=== PATIENT | male | born 1935 | race Caucasian/White ===

== ENCOUNTER 2018-12-11 11:28 | Inpatient (IN) ==
--- NOTE | 2018-12-11 11:35 | Emergency Department Note ---
Disposition Clinical Impression: Contrast dye induced nephropathy, CHF exacerbation, Pneumonia Acute kidney failure Qualifiers: Acute renal failure type: unspecified Qualified Code(s): N17.9 - Acute kidney failure, unspecified Disposition: Still a Patient Condition: Fair Time of Disposition: 19:57 General Adult HPI - General Stated complaint: Abnormal Labs (Kidney Failure) Time Seen by Provider: 12/11/18 11:33 Source: patient, family Mode of arrival: ambulatory Limitations: no limitations Nursing Notes Reviewed: Yes Vital Signs Reviewed: Yes - History of Present Illness HPI Narrative: I have re-performed and reviewed the history documented by the medical student, and I confirm its accuracy except as noted below 83-year-old male past medical history significant for stage III chronic kidney disease, CHF, significant greater than 50 year smoking history, tracheostomy is placed, has been experiencing one year of gradually progressive and worsening weakness. Recently underwent a CT scan at [facility] with IV contrast. Patient states that he was called by his family physician for "abnormal labs" told to come to the ER. Patient states he has no surgical complaints at this time other than generalized weakness which he has noticed has become worse in the past week since his visit to [facility]. Patient and his family bedside also note that he has had worsening lower extremity edema bilaterally however most emphasized on the left side due to surgery were muscle was removed from his leg in order to recons truct his pharynx after tracheostomy placement. Patient states he has no other concerns or complaints at this time and "just wants to go home." Onset (ago): year(s) Consistency: Worsening Associated symptoms: Reports: weakness - Related Data Home Medications Medication Instructions Recorded Confirmed Famotidine [Pepcid] 40 mg PO BID 06/26/15 12/11/18 Levothyroxine [Synthroid] 88 mcg PO 0606/26/15 12/11/18 glipiZIDE [Glucotrol] 5 mg PO BIDWM 06/26/15 12/11/18 Aspirin [Lo-Dose Aspirin EC] 81 mg PO DAILY 12/11/18 12/11/18 Atorvastatin [Lipitor] 40 mg PO HS 12/11/18 12/11/18 Furosemide [Lasix] 40 mg PO DAILY 12/11/18 12/11/18 Isosorbide MONOnitrate (24 HR) 120 mg PO DAILY 12/11/18 12/11/18 [Imdur] Metoprolol Succinate [Kapspargo 12.5 mg PO DAILY 12/11/18 12/11/18 Sprinkle] Potassium Chloride [K-Tab ER] 10 mg PO BID 12/11/18 12/11/18 Sertraline [Zoloft] 50 mg PO DAILY 12/11/18 12/11/18 amLODIPine [Norvasc] 10 mg PO DAILY 12/11/18 12/11/18 hydrALAZINE [HydrALAZINE] 100 mg PO TID 12/11/18 12/11/18 metOLazone [Zaroxolyn] 2.5 mg PO DAILY 12/11/18 12/11/18 Previous Rx's Medication Instructions Recorded Lisinopril [Zestril] 40 mg PO DAILY #30 tablet 11/30/17 Allergies Allergy/AdvReac Type Severity Reaction Status Date / Time codeine AdvReac Hallucinati Verified 09/28/16 00:27 ng morphine AdvReac Vomiting Verified 09/28/16 00:27 Review of Systems: *See History of Present Illness for more detail Constitutional: Denies: fever, chills Cardiovascular: Denies: chest pain Respiratory: Denies: dyspnea, cough, hemoptysis Gastrointestinal: Denies: abdominal pain, nausea, vomiting, diarrhea, constipation, hematemesis, melena, hematochezia Genitourinary: Denies: hematuria Musculoskeletal: Denies: back pain, neck pain Integumentary: Denies: rash Neurological: Admits to weakness. Denies: headache, lightheadedness/dizziness, numbness, paresthesias, difficulty with ambulation. Endocrine: Admits fatigue All systems ED: reviewed and negative except as stated. Review of Systems: As Per HPI Past Medical History - Past Medical History Medical history: Reports: cancer, diabetes, hypertension, renal disease Surgical history: Reports: no surgical history Psychiatric history: Reports: no psych history - Social History Smoking Status: Former smoker Alcohol use: Reports: none Drug use: Reports: none Physical Exam Constitutional: No acute distress, [id number], engaged to conversation, speech is fluid, answers questions appropriately Neuro: GCS 15, no overt focal neurological deficits Head: Atraumatic, normocephalic Eyes: Pupils equal, round and reactive to light, no scleral icterus, no conjunctival injection Neck: Patient tracheostomy tube placement. *Chest: Symmetric chest wall rise *Heart: Cardiac rhythm and rate are regular with S1 and S2 , no S3 or S4 appreciated, no murmurs, gallops, rubs, or clicks. *Lungs: Significant amount of reverberating sounds from tracheostomy tube are present. Lower lobe expiratory wheezes are noted. Lungs are otherwise clear to auscultation bilaterally, without accessory muscle use or prolonged expiratory phase. No rhonchi or stridor appreciated. Abdomen: Abdomen is flat, soft to palpation, normal bowel sounds. No abdominal bruit auscultated. Non-distended, non-rigid, no organomegaly, no ascites appreciated. No pulsatile mass, no tenderness or guarding to palpation in all four quadrants, no rebound Extremities: Normal capillary refill without evidence of pedal edema, joint swelling or erythema. Pulses/motor/sensory intact in all 4 extremities. Psychiatric exam: Patient displays a normal affect and mood for the environment. No overt signs of hallucination. Integumentary: warm, dry, intact, normal color. No rash, cyanosis, diaphoresis, erythema, or pallor - General Limitations: other (Patient with tracheostomy tube speaking through robotic laryngeal device.) General appearance: alert, in no apparent distress Course Course Narrative: Differential diagnosis includes but is not limited to: Pneumonia COPD exacerbation Renal failure Myocardial ischemia. Evaluations: CBC, BMP, hepatic panel, lipase, chest x-ray, EKG/old EKG Treatments: Steroids. Ab. - Reevaluation(s) Reevaluation #1: Patient found to have pneumonia as well as left-sided pleural effusion on chest x-ray, BNP is elevated concerning for worsening CHF exacerbation Patient will be started on azithromycin and levofloxacin once in the ED and admitted for pneumonia in the setting of CHF exacerbation Nephrology consulted and is following for acute on chronic kidney injury. Vital Signs Temperature 97.6 F 12/11/18 11:37 Pulse Rate 61 12/11/18 11:37 Respiratory Rate 16 12/11/18 11:37 Blood Pressure 169/67 12/11/18 11:37 O2 Sat by Pulse Oximetry 94 12/11/18 11:37 Temperature 98.0 F 12/12/18 10:46 Pulse Rate 62 12/12/18 10:46 Respiratory Rate 17 12/12/18 10:46 Blood Pressure 185/57 12/12/18 10:46 O2 Sat by Pulse Oximetry 95 12/12/18 10:46 Oxygen Delivery Oxygen Delivery Room Air Medical Decision Making - MDM Narrative Medical decision making narrative: Patient laboratory values show acute on chronic kidney injury Patient imaging concerning for left lower lobe pneumonia with BMP showing CHF exacerbation. Patient will be given azithromycin and Levaquin here in the ED for management of pneumonia Patient will be admitted to hospital medicine service further evaluation and management of pneumonia in the setting of CHF exacerbation. Patient family bedside verbalized their understanding and agreement this plan. Dr. Jain accepting admission. Patient is hemodynamically stable time of admission. - Lab Data Lab results reviewed: Yes I reviewed the patient's lab results. Result diagrams: 12/12/18 01:54 12/12/18 01:54 Lab Results 12/11/18 12/11/18 12/11/18 Range/Units 12:04 12:04 12:07 WBC 8.7 (4.3-11.1) K/mcL RBC 4.02 L (4.19-5.50) M/mcL Hgb 11.3 L (12.9-16.9) g/dL Hct 34.5 L (37.5-50.1) % MCV 85.8 (83.0-100.0) fL MCH 28.1 (28.0-33.3) pg MCHC 32.8 (31.6-35.5) g/dL RDW 15.1 H (11.5-14.5) % Plt Count 162 (140-400) K/mcL MPV 10.8 (9.4-12.4) fL Immature Gran % 0.3 (0-4) % Seg Neutrophils % 70.5 % Lymphocytes % 17.2 % Monocytes % 9.2 % Eosinophils % 2.2 % Basophils % 0.6 % Neutrophils # 6.1 (1.6-8.9) K/mcL Lymphocytes # 1.5 (0.6-4.6) K/mcL Monocytes # 0.8 (0.0-1.3) K/mcL Eosinophils # 0.2 (0.0-0.6) K/mcL Basophils # 0.1 (0.0-0.2) K/mcL Sodium 137 (136-145) mEq/L Potassium 3.9 (3.5-5.1) mEq/L Chloride 102 (98-107) mEq/L Carbon Dioxide 20 L (23-29) mEq/L BUN 91 H (8-23) mg/dL Creatinine 6.08 H (0.70-1.30) mg/dL Est GFR ( Amer) 11 L (> 60) Est GFR (Non-Af Amer) 9 L (> 60) BUN/Creatinine Ratio 15 (6-26) Glucose 163 H (70-105) mg/dL Calculated Osmolality 316 H (280-300) Calcium 8.8 (8.6-10.3) mg/dL Total Bilirubin 0.5 (0.3-1.0) mg/dL Direct Bilirubin 0.1 (0.0-0.2) mg/dL Indirect Bilirubin 0.4 (0.0-1.2) mg/dL AST 15 (13-39) Units/L ALT 13 (7-52) Units/L Alkaline Phosphatase 99 (34-104) Units/L B-Natriuretic Peptide 260 H (Less than 100) pg/mL Serum Total Protein 6.7 (6.4-8.9) g/dL Albumin 3.8 (3.5-5.7) g/dL Globulin 2.9 (2.4-3.5) g/dL Albumin/Globulin Ratio 1.3 (1.1-2.2) Lipase 23 (11-82) Units/L - Radiology Data Radiology results reviewed: Yes I reviewed the patient's radiology results. Chest X-Ray 12/11/18 12:39 IMPRESSION: New moderate left pleural effusion with left basilar opacity that may represent underlying consolidation from pneumonia versus atelectasis. Recommend follow-up to resolution. D/ / 12/11/2018 13:13:11 Tino Muñiz MD / sameer Interpreting Provider: Tino Muñiz MD - EKG Data EKG #1 EKG attestation: Yes I reviewed and interpreted this EKG. EKG results narrative: Patient's EKG shows a sinus rhythm with a first degree heart block and a borderline QT interval with a heart of 58 bpm, FL interval of 218 ms, QR episcopal of 90 ms, QT/QTc interval of 485/477 ms respectively. There are no significant ST segment elevations, depressions, pathologic Q waves, abnormal T- wave inversions, nor any other signs acute ischemic change. This EKG that was performed today is generally consistent with prior EKG performed on 11/30/2017.
[2018-12-11] MEDS ORDERED: 0.9 % Sodium Chloride 1,000 ML IVC ONE (11:37)
--- NOTE | 2018-12-11 12:20 | Emergency Department Note ---
Disposition Clinical Impression: Contrast dye induced nephropathy Acute kidney failure Qualifiers: Acute renal failure type: unspecified Qualified Code(s): N17.9 - Acute kidney failure, unspecified Disposition: Still a Patient Time of Disposition: 12:19 General Adult HPI - General Chief complaint: ED Recheck/Abnormal Lab/Rx Stated complaint: Abnormal Labs (Kidney Failure) Time Seen by Provider: 12/11/18 11:33 Source: patient Limitations: no limitations Nursing Notes Reviewed: Yes Vital Signs Reviewed: Yes - History of Present Illness HPI Narrative: Attestation note: Patient was seen with the emergency medicine resident/nurse practitioner/physician front desk assistant/transitional resident/medical student: Dr. ALFONSO GILMORE. I was present for the significant portions of the performance and interpretation of procedures and EKGs. I have personally performed a face to face evaluation on this patient. I have reviewed and agree with history and physical examination patient management and disposition. A 3-year-old male history of throat cancer with laryngectomy also has this EKG stage III being managed by the paperboard box maker Dr. Jack. Please fax copy of this dictation to him. Patient was receiving follow-up on CT scan of the neck and chest with contrast last week he had blood drawn is BUN/creatinine is markedly elevated 84 over 4.5 approximately which is above his normal baseline. His paperboard box maker asked him to come to the emergency department for further evaluation management and possible admission. A she denies chest pain or shortness of breath there is no unusual edema he is afebrile with stable vital signs. Patient will undergo IV fluid nephrology consultation with consideration of admission. Differential includes worsening of the CK ED with possibly superimposed contrast induced nephropathy Pain Scale: 0 - Related Data Home Medications Medication Instructions Recorded Confirmed Famotidine [Pepcid] 40 mg PO BID 06/26/15 06/26/15 Levothyroxine [Synthroid] 25 mcg PO 0630 06/26/15 06/26/15 Liraglutide [Victoza 2-Nj] 1.2 mg IM DAILY 06/26/15 06/26/15 NIFEdipine [Nifedical Xl] 60 mg PO DAILY 06/26/15 06/26/15 glipiZIDE [Glucotrol] 10 mg PO BIDWM 06/26/15 06/26/15 Previous Rx's Medication Instructions Recorded Docusate [Colace] 100 mg PO BID #30 capsule 06/30/15 traMADol [Ultram] 100 mg PO QID #40 tablet 06/30/15 cloNIDine HCl [Clonidine HCl] 0.2 mg PO Q8H #90 tab 09/29/16 Lisinopril [Zestril] 40 mg PO DAILY #30 tablet 11/30/17 Allergies Allergy/AdvReac Type Severity Reaction Status Date / Time codeine AdvReac Hallucinati Verified 09/28/16 00:27 ng morphine AdvReac Vomiting Verified 09/28/16 00:27 Past Medical History - Past Medical History Medical history: Reports: cancer, diabetes, hypertension, renal disease Surgical history: Reports: no surgical history Psychiatric history: Reports: no psych history - Social History Smoking Status: Former smoker Alcohol use: Reports: none Drug use: Reports: none Physical Exam - General Limitations: no limitations General appearance: alert, in no apparent distress Course Vital Signs Temperature 97.6 F 12/11/18 11:37 Pulse Rate 61 12/11/18 11:37 Respiratory Rate 16 12/11/18 11:37 Blood Pressure 169/67 12/11/18 11:37 O2 Sat by Pulse Oximetry 94 12/11/18 11:37 Temperature 97.6 F 12/11/18 11:37 Pulse Rate 61 12/11/18 11:37 Respiratory Rate 16 12/11/18 11:37 Blood Pressure 169/67 12/11/18 11:37 O2 Sat by Pulse Oximetry 94 12/11/18 11:37 Oxygen Delivery Oxygen Delivery Room Air
[2018-12-11 12:24] LABS: Basophils # 0.1 K/mcL (0.0-0.2); Basophils % 0.6 %; Eosinophils # 0.2 K/mcL (0.0-0.6); Eosinophils % 2.2 %; Hematocrit 34.5 % (37.5-50.1); Hemoglobin 11.3 g/dL (12.9-16.9); Immature Granulocytes % 0.3 % (0-4); Lymphocytes # 1.5 K/mcL (0.6-4.6); Lymphocytes % 17.2 %; Mean Corpuscular HGB Conc 32.8 g/dL (31.6-35.5); Mean Corpuscular Hemoglobin 28.1 pg (28.0-33.3); Mean Corpuscular Volume 85.8 fL (83.0-100.0); Mean Platelet Volume 10.8 fL (9.4-12.4); Monocytes # 0.8 K/mcL (0.0-1.3); Monocytes % 9.2 %; Neutrophils # 6.1 K/mcL (1.6-8.9); Platelet Count 162 K/mcL (140-400); Red Blood Count 4.02 M/mcL (4.19-5.50); Red Cell Distribution Width 15.1 % (11.5-14.5); Segmented Neutrophils % 70.5 %; White Blood Count 8.7 K/mcL (4.3-11.1)
--- NOTE | 2018-12-11 12:25 | Emergency Department Note ---
Disposition Clinical Impression: Contrast dye induced nephropathy, CHF exacerbation, Pneumonia Acute kidney failure Qualifiers: Acute renal failure type: unspecified Qualified Code(s): N17.9 - Acute kidney failure, unspecified Disposition: Still a Patient Condition: Fair Time of Disposition: 23:17 General Adult HPI - General Chief complaint: ED Recheck/Abnormal Lab/Rx Stated complaint: Abnormal Labs (Kidney Failure) Time Seen by Provider: 12/11/18 11:33 Source: patient Limitations: no limitations - History of Present Illness HPI Narrative: 83 year old male reports to the ER today after being told by his PCP to come to the ER today because of abnormal lab values. The pt and his family state he has been having a little more weakness lately. He has a lengthy past medical history which is prominent for throat cancer, stage 3 kidney disease, DM, and CHF. He recently got CT scans with contrast of the neck and chest. He reports increased pain in his legs with swelling bilaterally, daily cough with sputum production white in color. He denies any SOB, chest pain, fevers, chills, abdominal pain. He smoked for approximately 50+ years. Pain Scale: 0 - Related Data Home Medications Medication Instructions Recorded Confirmed Famotidine [Pepcid] 40 mg PO BID 06/26/15 12/11/18 Levothyroxine [Synthroid] 88 mcg PO 0630 06/26/15 12/11/18 glipiZIDE [Glucotrol] 5 mg PO BIDWM 06/26/15 12/11/18 Aspirin [Lo-Dose Aspirin EC] 81 mg PO DAILY 12/11/18 12/11/18 Atorvastatin [Lipitor] 40 mg PO HS 12/11/18 12/11/18 Furosemide [Lasix] 40 mg PO DAILY 12/11/18 12/11/18 Isosorbide MONOnitrate (24 HR) 120 mg PO DAILY 12/11/18 12/11/18 [Imdur] Metoprolol Succinate [Kapspargo 12.5 mg PO DAILY 12/11/18 12/11/18 Sprinkle] Potassium Chloride [K-Tab ER] 10 mg PO BID 12/11/18 12/11/18 Sertraline [Zoloft] 50 mg PO DAILY 12/11/18 12/11/18 amLODIPine [Norvasc] 10 mg PO DAILY 12/11/18 12/11/18 hydrALAZINE [HydrALAZINE] 100 mg PO TID 12/11/18 12/11/18 metOLazone [Zaroxolyn] 2.5 mg PO DAILY 12/11/18 12/11/18 Previous Rx's Medication Instructions Recorded Lisinopril [Zestril] 40 mg PO DAILY #30 tablet 11/30/17 Allergies Allergy/AdvReac Type Severity Reaction Status Date / Time codeine AdvReac Hallucinati Verified 09/28/16 00:27 ng morphine AdvReac Vomiting Verified 09/28/16 00:27 Constitutional: Reports: weakness. Denies: fever, chills Cardiovascular: Reports: edema. Denies: chest pain, palpitations, dyspnea on exertion, orthopnea, paroxysmal nocturnal dyspnea Respiratory: Reports: cough. Denies: hemoptysis Gastrointestinal: Denies: abdominal pain, nausea, vomiting Genitourinary: Denies: dysuria, frequency Past Medical History - Past Medical History Medical history: Reports: cancer, diabetes, hypertension, renal disease Surgical history: Reports: no surgical history Psychiatric history: Reports: no psych history - Social History Smoking Status: Former smoker Alcohol use: Reports: none Drug use: Reports: none Physical Exam - General Limitations: no limitations General appearance: alert, in no apparent distress - Respiratory Respiratory exam: Present: wheezes, other (ronchi) Course Vital Signs Temperature 97.6 F 12/11/18 11:37 Pulse Rate 61 12/11/18 11:37 Respiratory Rate 16 12/11/18 11:37 Blood Pressure 169/67 12/11/18 11:37 O2 Sat by Pulse Oximetry 94 12/11/18 11:37 Temperature 97.9 F 12/11/18 20:51 Pulse Rate 83 12/11/18 20:51 Respiratory Rate 17 12/11/18 20:51 Blood Pressure 168/68 12/11/18 20:51 O2 Sat by Pulse Oximetry 95 12/11/18 21:22 Oxygen Delivery Oxygen Delivery Room Air Medical Decision Making - Lab Data Result diagrams: 12/11/18 12:04 12/11/18 12:04 Lab Results 12/11/18 12/11/18 12/11/18 Range/Units 12:04 12:04 12:07 WBC 8.7 (4.3-11.1) K/mcL RBC 4.02 L (4.19-5.50) M/mcL Hgb 11.3 L (12.9-16.9) g/dL Hct 34.5 L (37.5-50.1) % MCV 85.8 (83.0-100.0) fL MCH 28.1 (28.0-33.3) pg MCHC 32.8 (31.6-35.5) g/dL RDW 15.1 H (11.5-14.5) % Plt Count 162 (140-400) K/mcL MPV 10.8 (9.4-12.4) fL Immature Gran % 0.3 (0-4) % Seg Neutrophils % 70.5 % Lymphocytes % 17.2 % Monocytes % 9.2 % Eosinophils % 2.2 % Basophils % 0.6 % Neutrophils # 6.1 (1.6-8.9) K/mcL Lymphocytes # 1.5 (0.6-4.6) K/mcL Monocytes # 0.8 (0.0-1.3) K/mcL Eosinophils # 0.2 (0.0-0.6) K/mcL Basophils # 0.1 (0.0-0.2) K/mcL Sodium 137 (136-145) mEq/L Potassium 3.9 (3.5-5.1) mEq/L Chloride 102 (98-107) mEq/L Carbon Dioxide 20 L (23-29) mEq/L BUN 91 H (8-23) mg/dL Creatinine 6.08 H (0.70-1.30) mg/dL Est GFR ( Amer) 11 L (> 60) Est GFR (Non-Af Amer) 9 L (> 60) BUN/Creatinine Ratio 15 (6-26) Glucose 163 H (70-105) mg/dL Calculated Osmolality 316 H (280-300) Calcium 8.8 (8.6-10.3) mg/dL Total Bilirubin 0.5 (0.3-1.0) mg/dL Direct Bilirubin 0.1 (0.0-0.2) mg/dL Indirect Bilirubin 0.4 (0.0-1.2) mg/dL AST 15 (13-39) Units/L ALT 13 (7-52) Units/L Alkaline Phosphatase 99 (34-104) Units/L B-Natriuretic Peptide 260 H (Less than 100) pg/mL Serum Total Protein 6.7 (6.4-8.9) g/dL Albumin 3.8 (3.5-5.7) g/dL Globulin 2.9 (2.4-3.5) g/dL Albumin/Globulin Ratio 1.3 (1.1-2.2) Lipase 23 (11-82) Units/L
[2018-12-11] MEDS ORDERED: Ipratropium/Albuterol Neb 3 ML IH ONE (12:39)
[2018-12-11] MEDS ORDERED: methylPREDNISolone 125 MG/2 ML VIAL IVP ONE (12:40)
[2018-12-11 12:47] LABS: Albumin 3.8 g/dL (3.5-5.7); Albumin/Globulin Ratio 1.3 (1.1-2.2); Bilirubin,Direct 0.1 mg/dL (0.0-0.2); Bilirubin,Indirect 0.4 mg/dL (0.0-1.2); Bilirubin,Total 0.5 mg/dL (0.3-1.0); Calcium 8.8 mg/dL (8.6-10.3); Globulin 2.9 g/dL (2.4-3.5); Potassium 3.9 mEq/L (3.5-5.1); Total Protein 6.7 g/dL (6.4-8.9)
[2018-12-11] MEDS ORDERED: Azithromycin 500 MG in D5% in Water 250 ML IVPB ONE (13:29)
[2018-12-11] MEDS ORDERED: Levofloxacin 750 MG/150 ML 750 MG/150 ML BAG IVPB ONE (13:29)
[2018-12-11] MEDS ORDERED: Naloxone 0.4 MG/ML INJ IVP PRN (16:29)
[2018-12-11] MEDS: Azithromycin 500 MG in D5% in Water 250 ML IVPB SCH (17:19)
[2018-12-11] MEDS: 0.9 % Sodium Chloride 1,000 ML IVC SCH (17:19)
--- NOTE | 2018-12-11 18:06 | Nephrology Consult Note ---
Date of Encounter: 12/11/18 Time of Encounter: 17:59 Assessment and Plan (1) Acute kidney injury superimposed on chronic kidney disease Current Visit: Yes Status: Acute The patient has acute kidney injury superimposed on chronic kidney disease. Etiology appears to be contrast induced nephropathy from the CT scan that the patient had last week. Secondary to the worsening will order a workup to evaluate for other causes. I recommend avoiding nephrotoxic agents that are not clinically necessary. I recommend adjusting medications for renal function. I agree with intravenous fluids as patient may be slightly dehydrated given his chronic diarrhea. At the time my evaluation he does not need a renal biopsy or hemodialysis. Thank you for the consult. We will continue to follow with you. (2) Contrast dye induced nephropathy Current Visit: Yes Status: Acute (3) Anemia Current Visit: No Status: Acute Workup has been ordered. Qualifiers: Anemia type: unspecified type Qualified Code(s): D64.9 - Anemia, unspecified (4) Accelerated hypertension Current Visit: No Status: Chronic Titrate her blood pressure medication as needed. (5) Chronic kidney disease, stage III (moderate) Current Visit: No Status: Chronic (6) Type 2 diabetes mellitus with hyperglycemia Current Visit: No Status: Chronic Per the primary team. Qualifiers: Qualified Code(s): E11.65 - Type 2 diabetes mellitus with hyperglycemia (7) Metabolic acidosis Current Visit: Yes Status: Acute Monitor. Check lactic acid. He may need sodium bicarbonate. History of Present Illness - Reason for Consult Consult date: 12/11/18 Acute Kidney Injury, Chronic Kidney Disease - Chief Complaint DEMETRIA on CKD - History of Present Illness Mr. Robb is an 83 yo man with a history of CKD followed by Dr. Rondon presents for the evaluation of DEMETRIA superimposed on CKD. He was seen with his family at his bedside. The patient has chronic diarrhea that may have gotten worse. He had a CT with contrast last week. Labs were drawn last Sunday and found his renal function to be worse. The patient denies chest pain, shortness of breath, nausea or vomiting. His appetite is stable. He denies use of NSAIDs. Past Med Surg Social Fam HX - Past Medical History Medical history: cancer, diabetes, hypertension, renal disease Additional medical history: voice box removal. stage 3 kidney disease Psychiatric history: no psych history - Past Surgical History Surgical History: no surgical history Additional surgical history: voice box removal - Social History Smoking Status: Former smoker Alcohol use: none Drug use: none - Family History Daughter Family Member Ethnicity: Non- Living Status: Still Living Hx Family Cancer: Yes (breast cancer) Medications and Allergies Famotidine [Pepcid] 40 mg PO BID 06/26/15 [History] Levothyroxine [Synthroid] 88 mcg PO 0630 06/26/15 [History] glipiZIDE [Glucotrol] 5 mg PO BIDWM 06/26/15 [History] Lisinopril [Zestril] 40 mg PO DAILY #30 tablet 11/30/17 [Rx] Aspirin [Lo-Dose Aspirin EC] 81 mg PO DAILY 12/11/18 [History] Atorvastatin [Lipitor] 40 mg PO HS 12/11/18 [History] Furosemide [Lasix] 40 mg PO DAILY 12/11/18 [History] Isosorbide MONOnitrate (24 HR) [Imdur] 120 mg PO DAILY 12/11/18 [History] Metoprolol Succinate [Kapspargo Sprinkle] 12.5 mg PO DAILY 12/11/18 [History] Potassium Chloride [K-Tab ER] 10 mg PO BID 12/11/18 [History] Sertraline [Zoloft] 50 mg PO DAILY 12/11/18 [History] amLODIPine [Norvasc] 10 mg PO DAILY 12/11/18 [History] hydrALAZINE [HydrALAZINE] 100 mg PO TID 12/11/18 [History] metOLazone [Zaroxolyn] 2.5 mg PO DAILY 12/11/18 [History] Allergy/AdvReac Type Severity Reaction Status Date / Time codeine AdvReac Hallucinati Verified 09/28/16 00:27 ng morphine AdvReac Vomiting Verified 09/28/16 00:27 Review of Systems All Systems: reviewed and no additional remarkable complaints except as stated (As documented in the history of present illness) Exam - Vital Signs Vital signs: Initial Vital Signs Temp Pulse Resp BP Pulse Ox 97.6 F 61 16 169/67 94 12/11/18 11:37 12/11/18 11:37 12/11/18 11:37 12/11/18 11:37 12/11/18 11:37 Vital Signs - Last 8 Hours Temp Pulse Resp BP Pulse Ox 12/11/18 14:23 101 21 167/58 94 12/11/18 13:39 18 95 12/11/18 12:46 62 22 155/61 95 12/11/18 11:37 97.6 F 61 16 169/67 94 Intake and Output 12/11/18 12/11/18 12/11/18 07:59 15:59 23:59 Intake Total 250 / 250 0 / 250 Output Total 225 / 225 Balance 250 / 25 -225 / 25 Intake: IV Fluids 250 / 250 Zithromax 500 mg In Dextrose 5% 250 / 250 250 ML @ 252 mls/hr IVPB ONCE ONE Rx#:[id number] Oral 0 / 0 Output: Urine 225 / 225 Other: Weight 82.1 kg 82.6 kg Patient Weight 12/11/18 23:59 Weight 82.6 kg - General Appearance General appearance: well-developed, well-nourished Additional Comments: tracheal stoma in place Neck: supple Respiratory: clear Cardiology: edema, regular rate Gastrointestinal: no tenderness Integumentary: warm and dry Neurologic: alert and oriented x3 Additional Comments: He is hard of hearing Musculoskeletal: no cyanosis Psychiatric: mood/affect appropriate Results - Lab Results 12/11/18 12:04 12/11/18 12:04 Most recent lab results 12/11/18 12:04 Calcium 8.8 Consult Discharge Plan - Plan Referrals: Margarita Page CNP [Primary Care Provider] -
[2018-12-11 18:49] LABS: Bilirubin,Urine Negative (Negative); Blood,Urine Negative (Negative); Clarity,Urine Clear (Clear); Color,Urine Yellow (Yellow); Glucose,Urine (UA) 100 mg/dL (Normal); Ketones,Urine Negative (Negative); Leukocyte Esterase,Urine Negative (Negative); Nitrite,Urine Negative (Negative); PH,Urine 5.5 pH Units (5.0-8.0); Protein,Urine >=300 mg/dL (Neg-Trace); Specific Gravity,Urine 1.018 (1.010-1.025); Urobilinogen,Urine Normal (Normal)
[2018-12-11 18:50] LABS: Bacteria,Urine None Seen per hpf (None-Few); Hyaline Casts,Urine None Seen per lpf (None-Few); Squamous Epithelial Cell,Urine Many per lpf (None-Few); WBC,Urine 0-3 per hpf (0-3)
[2018-12-11 19:15] LABS: Potassium,Urine 37.8 mEq/L; Protein/Creatinine Ratio,Urine 2.54 mg/mg (0.00-0.20)
--- NOTE | 2018-12-11 19:50 | Internal Med History&Physical ---
Date of Encounter: 12/11/18 Time of Encounter: 19:00 Internal Medicine - H&P: HPI Chief complaint: Worsening creatinine and worsening lethargy History of present illness: Mr. Robb is a 83 year old male with pmh of throat cancer s/p tracheostomy, chemotherapy and radiation, CKD stage 3 presenting with complaints of abnormal labs after being referred by his PCP. Other than some lethargy and malaise, patient says he has been fine otherwise. He however recently had CT head, neck and chest with IV contrast at [facility] as part of his cancer work up. His creatinine at baseline runs around 2 and today it is 6.08. He denies any abdominal pain, any fevers or chills. admits he has had some weakness, and has been slightly more lethargic in the last couple of days. In the ER, he was started on IV fluids. A chest xray shpws a new moderate left pleural effusion. He is being admitted for further management Past Med Surg Social Fam HX - Past Medical History Medical history: cancer, diabetes, hypertension, renal disease Additional medical history: voice box removal. stage 3 kidney disease Psychiatric history: no psych history - Past Surgical History Surgical History: no surgical history Additional surgical history: voice box removal - Social History Smoking Status: Former smoker Alcohol use: none Drug use: none - Family History Daughter Family Member Ethnicity: Non- Living Status: Still Living Hx Family Cancer: Yes (breast cancer) Internal Medicine - H&P: Meds Famotidine [Pepcid] 40 mg PO BID 06/26/15 [History] Levothyroxine [Synthroid] 88 mcg PO 0630 06/26/15 [History] glipiZIDE [Glucotrol] 5 mg PO BIDWM 06/26/15 [History] Lisinopril [Zestril] 40 mg PO DAILY #30 tablet 11/30/17 [Rx] Aspirin [Lo-Dose Aspirin EC] 81 mg PO DAILY 12/11/18 [History] Atorvastatin [Lipitor] 40 mg PO HS 12/11/18 [History] Furosemide [Lasix] 40 mg PO DAILY 12/11/18 [History] Isosorbide MONOnitrate (24 HR) [Imdur] 120 mg PO DAILY 12/11/18 [History] Metoprolol Succinate [[place] Sprinkle] 12.5 mg PO DAILY 12/11/18 [History] Potassium Chloride [K-Tab ER] 10 mg PO BID 12/11/18 [History] Sertraline [Zoloft] 50 mg PO DAILY 12/11/18 [History] amLODIPine [Norvasc] 10 mg PO DAILY 12/11/18 [History] hydrALAZINE [HydrALAZINE] 100 mg PO TID 12/11/18 [History] metOLazone [Zaroxolyn] 2.5 mg PO DAILY 12/11/18 [History] Allergy/AdvReac Type Severity Reaction Status Date / Time codeine AdvReac Hallucinati Verified 09/28/16 00:27 ng morphine AdvReac Vomiting Verified 09/28/16 00:27 All Systems PM: A 10-system review of systems was performed and is negative for pertinent findings except as documented above in the HPI. - Constitutional Constitutional: fatigue, no chills, no fever(s), no night sweats - EENT Eyes: no change in vision, no discharge, no pain, no photophobia Ears: no ear discharge, no ear pain, no tinnitus Nose, mouth and throat: no dysphagia, no nasal discharge, no neck pain, no sore throat - Cardiovascular Cardiovascular ROS IM: no chest pain, no diaphoresis, no dyspnea, no lightheadedness, no palpitations, no syncope - Respiratory Respiratory: no cough, no dyspnea, no wheezing, no excessive phlegm production - Gastrointestinal Gastrointestinal: no abdominal pain, no diarrhea, no hematemesis, no hematochezia, no melena, no nausea, no vomiting - Musculoskeletal Musculoskeletal ROS IM: no numbness, no tingling - Integumentary Integumentary IM: no rash, no unusual bruising - Neurological Neurological ROS: no confusion, no convulsions, no focal weakness, no numbness, no tingling, no tremor(s) - Hematologic/Lymphatic Hematologic/Lymphatic: no easy bruising - Constitutional Vitals: Temp Pulse Resp BP Pulse Ox 97.6 F 101 21 167/58 94 12/11/18 11:37 12/11/18 14:23 12/11/18 14:23 12/11/18 14:23 12/11/18 14:23 Exam: Tracheostomy site in place - Head Head exam: Present: atraumatic, normocephalic - Eye Eye exam: Present: PERRL, conjuntiva pink, sclera anicteric Pupils: Present: PERRL - Neck Neck exam general surgery: Present: supple, trachea midline. Absent: lymphadenopathy - Respiratory Respiratory exam: Present: CTAB. Absent: accessory muscle use, rales, rhonchi, wheezes - Cardiovascular Cardiovascular exam: Present: RRR, +S1, +S2. Absent: diastolic murmur, gallop, rubs, systolic murmur - GI/Abdominal GI/Abdominal exam: Present: normal bowel sounds, soft, no peritoneal signs. Absent: distended, tenderness - Extremities Exam Extremities exam: Present: warm, radial pulses palpable and symmetrical. Absent: calf tenderness, cyanotic, pedal edema - Neurological Exam Neurological exam: Present: CN II-XII intact, oriented X3, no focal deficits. Absent: pronater drift, facial droop, speech deficit - Skin Skin exam: Present: dry, intact Internal Med - H&P Results - Labs CBC & Chem 7: 12/11/18 12:04 12/11/18 12:04 Labs: Short CBC 12/11/18 Range/Units 12:04 WBC 8.7 (4.3-11.1) K/mcL Hgb 11.3 L (12.9-16.9) g/dL Hct 34.5 L (37.5-50.1) % Plt Count 162 (140-400) K/mcL Neutrophils # 6.1 (1.6-8.9) K/mcL BMP 12/11/18 12:04 Sodium 137 Potassium 3.9 Chloride 102 Carbon Dioxide 20 L BUN 91 H Creatinine 6.08 H Glucose 163 H Calcium 8.8 Liver Function 12/11/18 Range/Units 12:04 Total Bilirubin 0.5 (0.3-1.0) mg/dL Direct Bilirubin 0.1 (0.0-0.2) mg/dL AST 15 (13-39) Units/L ALT 13 (7-52) Units/L Alkaline Phosphatase 99 (34-104) Units/L Albumin 3.8 (3.5-5.7) g/dL Urine 12/11/18 Range/Units 18:28 Urine Color Yellow (Yellow) Urine Clarity Clear (Clear) Urine pH 5.5 (5.0-8.0) pH Units Ur Specific [place] 1.018 (1.010-1.025) Urine Protein >=300 H (Neg-Trace) mg/dL Urine Glucose (UA) 100 H (Normal) mg/dL - Impressions ITS Impressions Chest X-Ray 12/11/18 12:39 IMPRESSION: New moderate left pleural effusion with left basilar opacity that may represent underlying consolidation from pneumonia versus atelectasis. Recommend follow-up to resolution. D/ / 12/11/2018 13:13:11 Tino Muñiz MD / sameer Interpreting Provider: Tino Muñiz MD - Assessment and Plan (1) Acute kidney failure Current Visit: Yes Status: Acute Assessment and plan: Pt comes in with worsening creatinine likely secondary to contrast induced nephropathy Hydrate with IV fluids, monitor creatinine Nephrology on board and appreciate recs Qualifiers: Acute renal failure type: unspecified Qualified Code(s): N17.9 - Acute kidney failure, unspecified (2) Contrast dye induced nephropathy Current Visit: Yes Status: Acute Assessment and plan: See #1. continue IV fluids (3) Type 2 diabetes mellitus with hyperglycemia Current Visit: Yes Status: Chronic Assessment and plan: On insulin Qualifiers: Qualified Code(s): E11.65 - Type 2 diabetes mellitus with hyperglycemia (4) Hypertension Current Visit: Yes Status: Acute Assessment and plan: Continue home meds. Avoid nephrotoxins Qualifiers: Qualified Code(s): I10 - Essential (primary) hypertension (5) Metabolic acidosis Current Visit: Yes Status: Acute Assessment and plan: Increased anion gap metabolic acidosis may be secondary to a combination of uremia vs sepsis Obtain lactic acid. Continue IV fluids. BUN elevated at 91 Will give one amp of sodium bicarb (6) Community acquired bacterial pneumonia Current Visit: Yes Status: Acute Assessment and plan: Obtain blood cultures, urine strep and legionella antigen start on ceftriaxone and azithromycin (7) DVT prophylaxis Current Visit: Yes Status: Acute Assessment and plan: Heparin - Time Spent With Patient Total time spent is greater than 50% in coordination of care (as documented) at patient's floor/unit and/or counseling patient:
[2018-12-11] MEDS ORDERED: Sodium Bicarbonate 50 MEQ/50 ML VIAL IVP ONE (20:01)
[2018-12-11] MEDS: hydrALAZINE 25 MG TABLET PO SCH (20:54)
[2018-12-11] MEDS: *HR* Heparin 5,000 UNIT/ML VIAL SQ SCH (23:14)
[2018-12-12] MEDS: 0.9 % Sodium Chloride 1,000 ML IVC SCH ×2 (01:05→09:15)
[2018-12-12 02:09] LABS: Retculocyte # 0.02 M/mcL (0.05-0.10); Reticulocyte % 0.6 % (1.6-2.8)
[2018-12-12 02:10] LABS: Hematocrit 30.5 % (37.5-50.1); Immature Granulocytes % 0.4 % (0-4); Lymphocytes # 0.4 K/mcL (0.6-4.6); Lymphocytes % 8.3 %; Mean Corpuscular HGB Conc 32.8 g/dL (31.6-35.5); Mean Corpuscular Hemoglobin 27.6 pg (28.0-33.3); Mean Corpuscular Volume 84.3 fL (83.0-100.0); Mean Platelet Volume 10.6 fL (9.4-12.4); Monocytes # 0.1 K/mcL (0.0-1.3); Monocytes % 1.7 %; Neutrophils # 4.3 K/mcL (1.6-8.9); Platelet Count 146 K/mcL (140-400); Red Blood Count 3.62 M/mcL (4.19-5.50); Red Cell Distribution Width 15.1 % (11.5-14.5); Segmented Neutrophils % 89.6 %; White Blood Count 4.8 K/mcL (4.3-11.1)
[2018-12-12 02:11] LABS: Estimated Average Glucose 128 mg/dl
[2018-12-12 02:27] LABS: Complement C3 104 mg/dL (87-200)
[2018-12-12 02:28] LABS: Calcium 8.2 mg/dL (8.6-10.3); Magnesium 1.6 mg/dL (1.6-2.6); Potassium 3.6 mEq/L (3.5-5.1)
[2018-12-12 02:29] LABS: % Iron Saturation 14 % (20-55); C-Reactive Protein 27 mg/L (Less than 10); Iron 35 mcg/dL (65-175); Transferrin 173 mg/dL (203-362)
[2018-12-12 02:48] LABS: Ferritin 174 ng/mL (20-250)
[2018-12-12 03:28] LABS: Folate 6.4 ng/mL (3.0-16.0); Rheumatoid Factor < 10 IU/mL (Less than 14); Vitamin B12 421 pg/mL (250-1100)
[2018-12-12] MEDS: *HR* Heparin 5,000 UNIT/ML VIAL SQ SCH ×2 (05:42→16:46)
--- NOTE | 2018-12-12 07:46 | Internal Med Progress Note ---
Hospitalist Progress Note - Encounter Date of Encounter: 12/12/18 Time of Encounter: 07:00 - Subjective Interval History: No acute events overnight - Exam Vitals: Temp Pulse Resp BP Pulse Ox 98.2 F 67 17 174/72 94 12/12/18 07:28 12/12/18 07:28 12/12/18 07:28 12/12/18 07:28 12/12/18 07:28 Exam: General appearance: Present: A&O X 3, no acute distress Head exam: Present: normocephalic Respiratory exam: Present: CTAB. Trachesotomy in place Cardiovascular exam: Present: RRR, +S1, +S2. Absent: diastolic murmur, gallop, rubs, systolic murmur GI/Abdominal exam: Soft, NT, ND, +BS Extremities exam: Absent: pedal edema Neurological exam: Present: alert, oriented X3, no focal deficits. Absent: altered - Assessment and Plan (1) Acute kidney failure Current Visit: Yes Status: Acute Assessment and Plan: Pt comes in with worsening creatinine likely secondary to contrast induced nephropathy Hydrate with IV fluids, monitor creatinine Nephrology on board and appreciate recs Renal on board and fluid switched to bicarb in D5 this am (2) Contrast dye induced nephropathy Current Visit: Yes Status: Acute Assessment and Plan: See #1. continue IV fluids (3) Type 2 diabetes mellitus with hyperglycemia Current Visit: Yes Status: Chronic Assessment and Plan: On insulin (4) Hypertension Current Visit: Yes Status: Acute Assessment and Plan: Continue home meds. Avoid nephrotoxins (5) Metabolic acidosis Current Visit: Yes Status: Acute Assessment and Plan: Increased anion gap metabolic acidosis may be secondary to a uremia/acute renal failure Continue IV fluids. BUN elevated at 91. Pt not septic. (6) Community acquired bacterial pneumonia Current Visit: Yes Status: Acute Assessment and Plan: Obtain blood cultures, urine strep and legionella antigen start on ceftriaxone and azithromycin (7) DVT prophylaxis Current Visit: Yes Status: Acute Assessment and Plan: Heparin - Time Spent with Patient Total time spent is greater than 50% in coordination of care (as documented) at patient's floor/unit and/or counseling patient: Internal Medicine: Result - Labs CBC & Chem 7: 12/12/18 01:54 12/12/18 01:54 Labs: Short CBC 12/11/18 12/12/18 Range/Units 12:04 01:54 WBC 8.7 4.8 (4.3-11.1) K/mcL Hgb 11.3 L 10.0 L (12.9-16.9) g/dL Hct 34.5 L 30.5 L (37.5-50.1) % Plt Count 162 146 (140-400) K/mcL Neutrophils # 6.1 4.3 (1.6-8.9) K/mcL BMP 12/11/18 12/12/18 12:04 01:54 Sodium 137 134 L Potassium 3.9 3.6 Chloride 102 103 Carbon Dioxide 20 L 19 L BUN 91 H 86 H Creatinine 6.08 H 5.34 H Glucose 163 H 293 H Calcium 8.8 8.2 L Liver Function 12/11/18 Range/Units 12:04 Total Bilirubin 0.5 (0.3-1.0) mg/dL Direct Bilirubin 0.1 (0.0-0.2) mg/dL AST 15 (13-39) Units/L ALT 13 (7-52) Units/L Alkaline Phosphatase 99 (34-104) Units/L Albumin 3.8 (3.5-5.7) g/dL Urine 12/11/18 Range/Units 18:28 Urine Color Yellow (Yellow) Urine Clarity Clear (Clear) Urine pH 5.5 (5.0-8.0) pH Units Ur Specific [place] 1.018 (1.010-1.025) Urine Protein >=300 H (Neg-Trace) mg/dL Urine Glucose (UA) 100 H (Normal) mg/dL - Impressions Impressions Chest X-Ray 12/11/18 12:39 IMPRESSION: New moderate left pleural effusion with left basilar opacity that may represent underlying consolidation from pneumonia versus atelectasis. Recommend follow-up to resolution. D/ / 12/11/2018 13:13:11 Tino Muñiz MD / sameer Interpreting Provider: Tino Muñiz MD Retroperitoneum Ultrasound 12/11/18 19:15 IMPRESSION: 1. Solid lesion inferior pole of the right kidney 5.44 x 3.9 x 3.[address] this lesion measured 3.7 x 3.41 cm, with interval enlargement. Appearance and interval increase in size is compatible with neoplasia, likely renal cell carcinoma. 2. Multiple cysts in both kidneys. RECOMMENDATIONS: MRI imaging of the kidneys may prove helpful for best assessment of the right renal lesion. D/ / 12/11/2018 23:13:32 Consuleo العلي MD / althea Interpreting Provider: Consuelo العلي MD Consult Discharge Plan - Plan Referrals: Margarita Page CNP [Primary Care Provider] - (1) Acute kidney failure Qualifiers: Acute renal failure type: unspecified Qualified Code(s): N17.9 - Acute kidney failure, unspecified (3) Type 2 diabetes mellitus with hyperglycemia Qualifiers: Qualified Code(s): E11.65 - Type 2 diabetes mellitus with hyperglycemia (4) Hypertension Qualifiers: Qualified Code(s): I10 - Essential (primary) hypertension
--- NOTE | 2018-12-12 08:59 | Nephrology Progress Note ---
Date of Encounter: 12/12/18 Time of Encounter: 08:58 - Assessment and Plan (1) Acute kidney injury superimposed on chronic kidney disease Current Visit: Yes Status: Acute The patient has acute kidney injury superimposed on chronic kidney disease. Etiology appears to be contrast induced nephropathy from the CT scan that the patient had last week. Secondary to the worsening will order a workup to evaluate for other causes. I recommend avoiding nephrotoxic agents that are not clinically necessary. I recommend adjusting medications for renal function. I agree with intravenous fluids as patient may be slightly dehydrated given his chronic diarrhea. At the time my evaluation he does not need a renal biopsy or hemodialysis. Thank you for the consult. We will continue to follow with you. 12/12/18 Renal function improving. Anticipate continued improvement . If discharge he will need to follow-up with renal in 4-8 weeks with renal function panel 1 week prior. He has a lesion on his kidney that needs to be evaluated by urology. (2) Contrast dye induced nephropathy Current Visit: Yes Status: Acute (3) Anemia Current Visit: No Status: Acute Qualifiers: Anemia type: unspecified type Qualified Code(s): D64.9 - Anemia, unspecified (4) Accelerated hypertension Current Visit: No Status: Chronic Titrate her blood pressure medication as needed. (5) Chronic kidney disease, stage III (moderate) Current Visit: No Status: Chronic (6) Type 2 diabetes mellitus with hyperglycemia Current Visit: Yes Status: Chronic Per the primary team. Qualifiers: Qualified Code(s): E11.65 - Type 2 diabetes mellitus with hyperglycemia (7) Metabolic acidosis Current Visit: Yes Status: Acute Subjective Principal diagnosis: DEMETRIA Interval history: Patient seen. He has no new complaint. Objective - Vital Signs Vital signs: Vital Signs Temp Pulse Resp BP Pulse Ox 12/12/18 07:28 98.2 F 67 17 174/72 94 12/12/18 03:36 97.8 F 78 17 148/56 96 12/11/18 23:52 98.3 F 79 17 150/54 93 12/11/18 21:22 95 12/11/18 20:51 97.9 F 83 17 168/68 95 12/11/18 14:23 101 21 167/58 94 12/11/18 13:39 18 95 12/11/18 12:46 62 22 155/61 95 12/11/18 11:37 97.6 F 61 16 169/67 94 Intake and Output 12/11/18 12/12/18 12/12/18 23:59 07:59 15:59 Intake Total 0 / 250 1600 / 1600 Output Total 225 / 225 650 / 650 Balance -225 / 25 950 / 950 Intake: IV Fluids 1000 / 1000 0.9 % Sodium Chloride 1,000 ML 1000 / 1000 @ 125 mls/hr IVC .Q8H EDILBERTO Rx#: [id number] Oral 0 / 0 600 / 600 Output: Urine 225 / 225 650 / 650 Other: Weight 82.6 kg 83 kg Blood Glucose* 164 Patient Weight 12/12/18 23:59 Weight 83 kg - General Appearance General appearance: Present: well-developed, well-nourished EENT: Present: ATNC Neck: Present: supple Cardiology: Present: regular rate Integumentary: Present: warm and dry Neurologic: Present: alert and oriented x3 Psychiatric: Present: mood/affect appropriate - Lab 12/12/18 01:54 12/12/18 01:54 Most recent lab results 12/12/18 01:54 Calcium 8.2 L Phosphorus 4.0 Magnesium 1.6 Consult Discharge Plan - Plan Referrals: Margarita Page, WARD ASSISTANT [Primary Care Provider] -
[2018-12-12] MEDS ORDERED: Sodium Bicarbonate 150 MEQ in D5% in Water 1,000 ML IVC SCH ×2 (09:00→10:15)
[2018-12-12] MEDS ORDERED: D5% in Water 1,000 ML IVC PRN (09:16)
[2018-12-12] MEDS ORDERED: Dextrose Gel 15 GM/37.5 ML TUBE PO PRN ×2 (09:16)
[2018-12-12] MEDS ORDERED: *HR* Dextrose 50 % in Water (Syg) 50 ML SYRINGE IVP PRN (09:16)
[2018-12-12] MEDS: hydrALAZINE 25 MG TABLET PO SCH ×3 (10:00→20:26)
[2018-12-12] MEDS: Aspirin Enteric Coated 81 MG Tablet PO SCH (10:01)
[2018-12-12] MEDS: Isosorbide MONOnitrate (24 HR) 60 MG TAB.ER.24H PO SCH (10:01)
[2018-12-12] MEDS: amLODIPine 5 MG TABLET PO SCH (10:01)
[2018-12-12] MEDS: cefTRIAXone 1,000 MG in Water for inj. (sterile) 20 ML 10 ML IVP SCH (10:02)
[2018-12-12] MEDS: Metoprolol XL (24 HR) Succ 25 MG TAB.ER.24H PO SCH (10:02)
[2018-12-12] MEDS: Insulin LISPRO 300 UNITS/3 ML VIAL SQ SCH ×2 (11:10→16:47)
[2018-12-12] MEDS: Ipratropium/Albuterol Neb 3 ML IH SCH ×4 (11:26→23:12)
--- NOTE | 2018-12-12 11:52 | Electrocardiograph Report ---
[place] [id number] Test Date: 2018-12-11 Pat Name: Bruno Robb Department: EXAM15 Room: 2A15 Gender: M Digital Project Manager: : 1935 Requested By: Audi Ray Order Number: [id number] Reading MD: Harrison Guzman Measurements Intervals [place] Rate: 58 P: 58 GA: 218 QRS: 49 QRSD: 99 T: 50 QT: 485 QTc: 477 Interpretive Statements Sinus rhythm Borderline prolonged GA interval Electronically Signed On 12-12-2018 11:51:05 EDT by Harrison Guzman
[2018-12-12] MEDS: Azithromycin 500 MG in D5% in Water 250 ML IVPB SCH (16:47)
[2018-12-12] MEDS ORDERED: Insulin LISPRO 300 UNITS/3 ML VIAL SQ SCH (21:00)
[2018-12-13 03:26] LABS: Basophils # 0.1 K/mcL (0.0-0.2); Basophils % 0.5 %; Eosinophils % 0.4 %; Hemoglobin 8.9 g/dL (12.9-16.9); Immature Granulocytes % 0.4 % (0-4); Lymphocytes # 1.6 K/mcL (0.6-4.6); Lymphocytes % 16.3 %; Mean Corpuscular Hemoglobin 27.7 pg (28.0-33.3); Mean Corpuscular Volume 84.1 fL (83.0-100.0); Mean Platelet Volume 10.5 fL (9.4-12.4); Monocytes % 9.7 %; Neutrophils # 7.2 K/mcL (1.6-8.9); Platelet Count 157 K/mcL (140-400); Red Blood Count 3.21 M/mcL (4.19-5.50); Red Cell Distribution Width 15.1 % (11.5-14.5); Segmented Neutrophils % 72.7 %
[2018-12-13 03:27] LABS: White Blood Count 9.9 K/mcL (4.3-11.1)
[2018-12-13] MEDS: Ipratropium/Albuterol Neb 3 ML IH SCH ×3 (03:37→11:15)
[2018-12-13 03:38] LABS: Calcium 7.8 mg/dL (8.6-10.3); Magnesium 1.4 mg/dL (1.6-2.6)
[2018-12-13] MEDS: *HR* Heparin 5,000 UNIT/ML VIAL SQ SCH (06:04)
--- NOTE | 2018-12-13 08:27 | Internal Med Progress Note ---
Hospitalist Progress Note - Encounter Date of Encounter: 12/13/18 Time of Encounter: 08:00 - Subjective Interval History: No acute events overnight - Exam Vitals: Temp Pulse Resp BP Pulse Ox 97.7 F 81 17 150/60 96 12/13/18 08:08 12/13/18 08:08 12/13/18 08:08 12/13/18 08:08 12/13/18 08:08 Exam: General appearance: Present: A&O X 3, no acute distress Head exam: Present: normocephalic Respiratory exam: Present: CTAB. Trachesotomy in place Cardiovascular exam: Present: RRR, +S1, +S2. Absent: diastolic murmur, gallop, rubs, systolic murmur GI/Abdominal exam: Soft, NT, ND, +BS Extremities exam: Absent: pedal edema Neurological exam: Present: alert, oriented X3, no focal deficits. Absent: altered - Assessment and Plan (1) Acute kidney failure Current Visit: Yes Status: Acute Assessment and Plan: Pt comes in with worsening creatinine likely secondary to contrast induced nephropathy Hydrate with IV fluids, monitor creatinine Nephrology on board and appreciate recs Renal on board and fluid switched to bicarb in D5 Okay for d/c today per renal (2) Contrast dye induced nephropathy Current Visit: Yes Status: Acute Assessment and Plan: See #1. continue IV fluids (3) Type 2 diabetes mellitus with hyperglycemia Current Visit: Yes Status: Chronic Assessment and Plan: On insulin (4) Hypertension Current Visit: Yes Status: Acute Assessment and Plan: Continue home meds. Avoid nephrotoxins (5) Metabolic acidosis Current Visit: Yes Status: Acute Assessment and Plan: Increased anion gap metabolic acidosis may be secondary to a uremia/acute renal failure Continue IV fluids. BUN elevated at 91. Pt not septic. (6) Community acquired bacterial pneumonia Current Visit: Yes Status: Acute Assessment and Plan: Obtain blood cultures, urine strep and legionella antigen start on ceftriaxone and azithromycin (7) DVT prophylaxis Current Visit: Yes Status: Acute Assessment and Plan: Heparin - Time Spent with Patient Total time spent is greater than 50% in coordination of care (as documented) at patient's floor/unit and/or counseling patient: Internal Medicine: Result - Labs CBC & Chem 7: 12/13/18 02:44 12/13/18 02:44 Labs: Short CBC 12/13/18 Range/Units 02:44 WBC 9.9 D (4.3-11.1) K/mcL Hgb 8.9 L (12.9-16.9) g/dL Hct 27.0 L (37.5-50.1) % Plt Count 157 (140-400) K/mcL Neutrophils # 7.2 (1.6-8.9) K/mcL BMP 12/13/18 02:44 Sodium 138 Potassium 3.0 L Chloride 102 Carbon Dioxide 23 BUN 80 H Creatinine 4.46 H Glucose 112 H Calcium 7.8 L - Impressions Impressions Chest X-Ray 12/11/18 12:39 IMPRESSION: New moderate left pleural effusion with left basilar opacity that may represent underlying consolidation from pneumonia versus atelectasis. Recommend follow-up to resolution. D/ / 12/11/2018 13:13:11 Tion Muñiz MD / sameer Interpreting Provider: Tino Muñiz MD Consult Discharge Plan - Plan Referrals: Margarita Page CNP [Primary Care Provider] - 12/24/18 1:15 pm () (1) Acute kidney failure Qualifiers: Acute renal failure type: unspecified Qualified Code(s): N17.9 - Acute kidney failure, unspecified (3) Type 2 diabetes mellitus with hyperglycemia Qualifiers: Qualified Code(s): E11.65 - Type 2 diabetes mellitus with hyperglycemia (4) Hypertension Qualifiers: Qualified Code(s): I10 - Essential (primary) hypertension
[2018-12-13] MEDS ORDERED: Potassium Chloride Elixir 20 MEQ/15 ML UDC PO SCH (08:30)
[2018-12-13] MEDS: Insulin LISPRO 300 UNITS/3 ML VIAL SQ SCH (08:50)
[2018-12-13] MEDS: hydrALAZINE 25 MG TABLET PO SCH (08:53)
[2018-12-13] MEDS: amLODIPine 5 MG TABLET PO SCH (08:53)
[2018-12-13] MEDS: Isosorbide MONOnitrate (24 HR) 60 MG TAB.ER.24H PO SCH (08:53)
[2018-12-13] MEDS: cefTRIAXone 1,000 MG in Water for inj. (sterile) 20 ML 10 ML IVP SCH (08:53)
[2018-12-13] MEDS: Metoprolol XL (24 HR) Succ 25 MG TAB.ER.24H PO SCH (08:54)
[2018-12-13] MEDS: Aspirin Enteric Coated 81 MG Tablet PO SCH (08:54)
[2018-12-13] MEDS ORDERED: Azithromycin 250 MG TABLET PO SCH (09:15)
--- NOTE | 2018-12-13 10:40 | Discharge Summary ---
Date of Encounter: 12/13/18 Time of Encounter: 12:00 - Discharge Diagnosis (1) Acute kidney failure Priority: Primary Status: Acute Assessment and Plan: 83 year old male with pmh of throat cancer s/p tracheostomy, chemotherapy and radiation, CKD stage 3 presenting with complaints of abnormal labs after being referred by his PCP. Other than some lethargy and malaise, patient says he has been fine otherwise. He however recently had CT head, neck and chest with IV contrast at [facility] as part of his cancer work up. His creatinine at baseline runs around 2 and today it is 6.08. He denies any abdominal pain, any fevers or chills. admits he has had some weakness, and has been slightly more lethargic in the last couple of days.In the ER, he was started on IV fluids. He was assessed with worsening creatinine likely secondary to contrast induced nephropathy. He was started on IV fluids with normal saline which was switched to D5 and bicarb by nephrology. He had good urine output consistently and his creatinine improved from 6 to 4. he was okayed by renal for discharge as a long as he had a folow up with renal and follow up labs within a week. He completed a course of antibiotics for community acquired pneumonia and also counseled to follow up with urology outpatient for a renal mass. 35 minutes was spent discharging this patient Qualifiers: Acute renal failure type: unspecified Qualified Code(s): N17.9 - Acute kidney failure, unspecified (2) Contrast dye induced nephropathy Priority: Primary Status: Acute (3) Type 2 diabetes mellitus with hyperglycemia Priority: Primary Status: Chronic Qualifiers: Qualified Code(s): E11.65 - Type 2 diabetes mellitus with hyperglycemia (4) Hypertension Priority: Primary Status: Acute Qualifiers: Qualified Code(s): I10 - Essential (primary) hypertension (5) Metabolic acidosis Priority: Primary Status: Acute (6) Community acquired bacterial pneumonia Priority: Primary Status: Acute (7) DVT prophylaxis Priority: Primary Status: Acute Hospital course: Mr. Robb is a 83 year old male - Time Spent with Patient Total time spent providing and/or coordinating discharge services: - Discharge Medications Prescriptions: Continued Levothyroxine [Synthroid] 88 mcg PO 0630 Famotidine [Pepcid] 40 mg PO BID glipiZIDE [Glucotrol] 5 mg PO DAILY Atorvastatin [Lipitor] 40 mg PO HS Sertraline [Zoloft] 50 mg PO DAILY Isosorbide MONOnitrate (24 HR) [Imdur] 120 mg PO DAILY amLODIPine [Norvasc] 10 mg PO DAILY Aspirin [Lo-Dose Aspirin EC] 81 mg PO DAILY hydrALAZINE [HydrALAZINE] 100 mg PO TID Potassium Chloride [K-Tab ER] 10 mg PO BID Metoprolol XL (24 HR) Succ [Toprol Xl] 12.5 mg PO DAILY Discontinued Lisinopril [Zestril] 40 mg PO DAILY #30 tablet Furosemide [Lasix] 40 mg PO DAILY metOLazone [Zaroxolyn] 2.5 mg PO DAILY Home Medications: Famotidine [Pepcid] 40 mg PO BID 06/26/15 [History] Levothyroxine [Synthroid] 88 mcg PO 30 06/26/15 [History] glipiZIDE [Glucotrol] 5 mg PO DAILY 06/26/15 [History] Aspirin [Lo-Dose Aspirin EC] 81 mg PO DAILY 12/11/18 [History] Atorvastatin [Lipitor] 40 mg PO HS 12/11/18 [History] Isosorbide MONOnitrate (24 HR) [Imdur] 120 mg PO DAILY 12/11/18 [History] Potassium Chloride [K-Tab ER] 10 mg PO BID 12/11/18 [History] Sertraline [Zoloft] 50 mg PO DAILY 12/11/18 [History] amLODIPine [Norvasc] 10 mg PO DAILY 12/11/18 [History] hydrALAZINE [HydrALAZINE] 100 mg PO TID 12/11/18 [History] Metoprolol XL (24 HR) Succ [Toprol Xl] 12.5 mg PO DAILY 12/12/18 [History] Allergies/Adverse Reactions: Allergy/AdvReac Type Severity Reaction Status Date / Time codeine AdvReac Hallucinati Verified 12/12/18 12:31 ng morphine AdvReac Vomiting Verified 12/12/18 12:31 Date of admission: 12/11/18 17:46 Primary care physician: Margarita Page Consults: 12/11/18 14:34 Consult to Nephrology [CONS] Stat Consulting Provider: Kidney Zabrina/BETHEL/EDWIN/ANALILIA Reason for Consult: DEMETRIA on CKD Time Notified: 14:35 Call Completed: Yes 12/12/18 08:15 Consult to Nurse Navigator [CONS] Routine Comment: pn 12/12/18 20:47 Consult to Urology [CONS] Routine Consulting Provider: Urology Zabrina Reason for Consult: Patient with renal lesion suspicious for RCA Call Completed: No - Constitutional Vitals: Temp Pulse Resp BP Pulse Ox 97.7 F 81 17 150/60 96 12/13/18 08:08 12/13/18 08:08 12/13/18 08:08 12/13/18 08:08 12/13/18 08:08 Exam: General appearance: Present: A&O X 3, no acute distress Head exam: Present: normocephalic Respiratory exam: Present: CTAB. Trachesotomy in place Cardiovascular exam: Present: RRR, +S1, +S2. Absent: diastolic murmur, gallop, rubs, systolic murmur GI/Abdominal exam: Soft, NT, ND, +BS Extremities exam: Absent: pedal edema Neurological exam: Present: alert, oriented X3, no focal deficits. Absent: altered - Patient Status Disposition: Home, Self-Care Condition: Good - Ambulatory Orders Ambulatory Orders: Renal Function Panel [CHEM] Time Frame: 5 Days, Facility: [facility], Location: [facility] - Discharge Instructions Follow Up With: Margarita Page CNP [Primary Care Provider] - 12/24/18 1:15 pm ()
[2018-12-13 11:21] VITALS: BP 171/62
--- NOTE | 2018-12-13 13:13 | Urology - Consult Note ---
<Ely Jason N - Last Filed: 12/13/18 13:10> Date of Encounter: 12/13/18 Time of Encounter: 11:00 - Assessment and Plan (1) Renal mass, right Status: Chronic Assessment and plan: Patient is an 83-year-old male who presents with a possibly enlarging right renal mass. I reviewed these findings with patient and his , and they are both aware of these findings. Patient is tentatively scheduled for a follow-up with Dr. Parmar on 01/03/2019. Mr. Robb plans to keep this appointment, and he and his will discuss further options regarding management of his right renal mass. Patient states at this time he does not wish to pursue any sort of treatment secondary to his age and comorbidities. I encouraged Mr. Robb to keep his appointment and further discuss surveillance versus treatment with Dr. Parmar as an outpatient. Urology CN:[facility] Consult date: 12/13/18 Reason for consult Urology: Other (right renal mass) Requesting physician: Zay Zayas History of present illness: Patient is an 83-year-old male who presents with an enlarging right lower pole renal mass. Patient was admitted to the hospital after obtaining lab work that showed elevated serum creatinine of 6.08. Patient has a history of oroph aryngeal cancer status post tracheostomy, and he has undergone chemotherapy and radiation. Patient underwent a CT of the abdomen and pelvis in March 2018 that showed renal tumor stability over a 1 year period. Patient underwent renal ultrasound that suggested an increase in size of 1.8 cm. Patient denies any flank pain, gross hematuria or change in voiding habits. Patient is an established patient of Dr. Parmar and has been observing this renal mass for the last year. Patient is scheduled for a repeat CT and follow-up with Dr. Parmar on 01/03/2019. Patient also has a history of prostate cancer, and his most recent PSA from March 2018 is 0.08. Patient has a very long-term smoking history, and he smoked for over 50 years. Patient denies any known family history of malignancy. Past Med Surg Social Fam HX - Past Medical History Medical history: cancer, diabetes, hypertension, renal disease Additional medical history: voice box removal. stage 3 kidney disease Psychiatric history: no psych history - Past Surgical History Surgical History: no surgical history Additional surgical history: voice box removal - Social History Smoking Status: Former smoker Alcohol use: none Drug use: none - Family History Daughter Family Member Ethnicity: Non- Living Status: Still Living Hx Family Cancer: Yes (breast cancer) Medications and Allergies Famotidine [Pepcid] 40 mg PO BID 06/26/15 [History] Levothyroxine [Synthroid] 88 mcg PO 0630 06/26/15 [History] glipiZIDE [Glucotrol] 5 mg PO DAILY 06/26/15 [History] Aspirin [Lo-Dose Aspirin EC] 81 mg PO DAILY 12/11/18 [History] Atorvastatin [Lipitor] 40 mg PO HS 12/11/18 [History] Isosorbide MONOnitrate (24 HR) [Imdur] 120 mg PO DAILY 12/11/18 [History] Potassium Chloride [K-Tab ER] 10 mg PO BID 12/11/18 [History] Sertraline [Zoloft] 50 mg PO DAILY 12/11/18 [History] amLODIPine [Norvasc] 10 mg PO DAILY 12/11/18 [History] hydrALAZINE [HydrALAZINE] 100 mg PO TID 12/11/18 [History] Metoprolol XL (24 HR) Succ [Toprol Xl] 12.5 mg PO DAILY 12/12/18 [History] Allergy/AdvReac Type Severity Reaction Status Date / Time codeine AdvReac Hallucinati Verified 12/12/18 12:31 ng morphine AdvReac Vomiting Verified 12/12/18 12:31 Review of Systems - Constitutional no chills, no fatigue, no fever(s) - EENT Nose, mouth and throat: no dizziness, no headache(s) - Cardiovascular no chest pain, no diaphoresis, no dyspnea - Respiratory no cough, no dyspnea - Gastrointestinal no abdominal pain, no nausea, no vomiting - Genitourinary no difficulty urinating, no dysuria, no flank pain, no hematuria, no urinary frequency, no urinary hesitancy, no urinary incontinence, no urinary urgency - Musculoskeletal no back pain, no muscle weakness - Integumentary no erythema, no rash - Neurological no confusion, no syncope - Psychiatric no anxiety, no confusion - Hematologic/Lymphatic no easy bleeding, no easy bruising - Allergic/Immunologic no throat swelling, no wheezing Exam Initial Vital Signs Temp Pulse Resp BP Pulse Ox 97.6 F 61 16 169/67 94 12/11/18 11:37 12/11/18 11:37 12/11/18 11:37 12/11/18 11:37 12/11/18 11:37 - General physical appearance Present: no distress, no pain - Eyes Present: PERRL, normal ocular movement - ENT Present: normal nares, no congestion, decreased hearing - Neck Present: no masses, trachea midline (tracheostomy ), no lymphadenopathy - Respiratory Present: normal respiratory effort - Cardiovascular Cardiovascular exam IM: RRR - Abdomen Abdomen: Present: soft, non tender. Absent: distended - Genitourinary other (no CVAT) - Integumentary Present: no rash, no abnormal pigmentation - Neurologic Present: normal coordination - Musculoskeletal Present: other (normal posture ) Urology Results - Labs 12/13/18 02:44 12/13/18 02:44 Abnormal lab results RBC 3.21 M/mcL (4.19-5.50) L 12/13/18 02:44 Hgb 8.9 g/dL (12.9-16.9) L 12/13/18 02:44 Hct 27.0 % (37.5-50.1) L 12/13/18 02:44 MCH 27.7 pg (28.0-33.3) L 12/13/18 02:44 RDW 15.1 % (11.5-14.5) H 12/13/18 02:44 Reticulocyte # 0.02 M/mcL (0.05-0.10) L 12/12/18 01:54 0.4 K/mcL (0.6-4.6) L 12/12/18 01:54 ESR 92 mm/hr (0-10) H 12/12/18 01:54 Percent Retic 0.6 % (1.6-2.8) L 12/12/18 01:54 Immature Retic Fraction 6.0 % (11.0-38.0) L 12/12/18 01:54 Sodium 134 mEq/L (136-145) L 12/12/18 01:54 Potassium 3.0 mEq/L (3.5-5.1) L 12/13/18 02:44 Carbon Dioxide 19 mEq/L (23-29) L 12/12/18 01:54 BUN 80 mg/dL (8-23) H 12/13/18 02:44 4.46 mg/dL (0.70-1.30) H 12/13/18 02:44 Est GFR ( Amer) 15 (> 60) L 12/13/18 02:44 Est GFR (Non-Af Amer) 13 (> 60) L 12/13/18 02:44 Glucose 112 mg/dL (70-105) H 12/13/18 02:44 POC Glucose 134 mg/dL (70-99) H 12/13/18 11:19 6.1 % (-5.6) H 12/12/18 01:54 311 (280-300) H 12/13/18 02:44 Lactic Acid 3.2 mmol/L (0.5-2.2) H 12/11/18 21:55 Calcium 7.8 mg/dL (8.6-10.3) L 12/13/18 02:44 Phosphorus 5.0 mg/dL (2.7-4.5) H 12/13/18 02:44 Magnesium 1.4 mg/dL (1.6-2.6) L 12/13/18 02:44 Iron 35 mcg/dL (65-175) L 12/12/18 01:54 % Saturation 14 % (20-55) L 12/12/18 01:54 173 mg/dL (203-362) L 12/12/18 01:54 27 mg/L (Less than 10) H 12/12/18 01:54 B-Natriuretic Peptide 260 pg/mL (Less than 100) H 12/11/18 12:07 >=300 mg/dL (Neg-Trace) H 12/11/18 18:28 100 mg/dL (Normal) H 12/11/18 18:28 5-15 per hpf (0-3) H 12/11/18 18:28 Ur Squamous Epith Cells Many per lpf (None-Few) H 12/11/18 18:28 Microalb/Creat Ratio 1612 mcg/mg (Less than 30) H 12/11/18 18:28 Protein/Creatinin Ratio 2.54 mg/mg (0.00-0.20) H 12/11/18 18:28 173 mg/dL (1-14) H 12/11/18 18:28 Diabetes panel 12/13/18 Range/Units 02:44 Sodium 138 (136-145) mEq/L Potassium 3.0 L (3.5-5.1) mEq/L Chloride 102 (98-107) mEq/L Carbon Dioxide 23 (23-29) mEq/L BUN 80 H (8-23) mg/dL Creatinine 4.46 H (0.70-1.30) mg/dL Glucose 112 H (70-105) mg/dL Calcium 7.8 L (8.6-10.3) mg/dL Calcium panel 12/13/18 Range/Units 02:44 Calcium 7.8 L (8.6-10.3) mg/dL Phosphorus 5.0 H (2.7-4.5) mg/dL Pituitary panel 12/13/18 Range/Units 02:44 Sodium 138 (136-145) mEq/L Potassium 3.0 L (3.5-5.1) mEq/L Chloride 102 (98-107) mEq/L Carbon Dioxide 23 (23-29) mEq/L BUN 80 H (8-23) mg/dL Creatinine 4.46 H (0.70-1.30) mg/dL Glucose 112 H (70-105) mg/dL Calcium 7.8 L (8.6-10.3) mg/dL Adrenal panel 12/13/18 Range/Units 02:44 Sodium 138 (136-145) mEq/L Potassium 3.0 L (3.5-5.1) mEq/L Chloride 102 (98-107) mEq/L Carbon Dioxide 23 (23-29) mEq/L BUN 80 H (8-23) mg/dL Creatinine 4.46 H (0.70-1.30) mg/dL Glucose 112 H (70-105) mg/dL Calcium 7.8 L (8.6-10.3) mg/dL All other labs normal. - Imaging CT scan - abdomen: report reviewed, image reviewed CT scan - pelvis: report reviewed, image reviewed US - kidney/bladder: report reviewed, image reviewed Consult Discharge Plan - Plan Referrals: Margarita Page CNP [Primary Care Provider] - 12/24/18 1:15 pm () <Shayan Eisenberg - Last Filed: 12/13/18 17:14> Date of Encounter: 12/13/18 - Assessment and Plan (1) Renal mass, right Status: Chronic Urology CN:HPI History of present illness: Chart reviewed. Imaging report reviewed. Review patient history with REDDY Jason. Patient is well known to our practice and has established care with my partner Dr. Parmar who has been following his renal mass. Mass has appeared to grow significantly since last image in March 2018. Plan: Will arrange for outpatient follow-up with Dr. Parmar in the next few weeks. No indications for surgical intervention during this admission. Exam Initial Vital Signs Temp Pulse Resp BP Pulse Ox 97.6 F 61 16 169/67 94 12/11/18 11:37 12/11/18 11:37 12/11/18 11:37 12/11/18 11:37 12/11/18 11:37 Urology Results - Labs 12/13/18 02:44 12/13/18 02:44 Abnormal lab results RBC 3.21 M/mcL (4.19-5.50) L 12/13/18 02:44 Hgb 8.9 g/dL (12.9-16.9) L 12/13/18 02:44 Hct 27.0 % (37.5-50.1) L 12/13/18 02:44 MCH 27.7 pg (28.0-33.3) L 12/13/18 02:44 RDW 15.1 % (11.5-14.5) H 12/13/18 02:44 Reticulocyte # 0.02 M/mcL (0.05-0.10) L 12/12/18 01:54 0.4 K/mcL (0.6-4.6) L 12/12/18 01:54 ESR 92 mm/hr (0-10) H 12/12/18 01:54 Percent Retic 0.6 % (1.6-2.8) L 12/12/18 01:54 Immature Retic Fraction 6.0 % (11.0-38.0) L 12/12/18 01:54 Sodium 134 mEq/L (136-145) L 12/12/18 01:54 Potassium 3.0 mEq/L (3.5-5.1) L 12/13/18 02:44 Carbon Dioxide 19 mEq/L (23-29) L 12/12/18 01:54 BUN 80 mg/dL (8-23) H 12/13/18 02:44 4.46 mg/dL (0.70-1.30) H 12/13/18 02:44 Est GFR ( Amer) 15 (> 60) L 12/13/18 02:44 Est GFR (Non-Af Amer) 13 (> 60) L 12/13/18 02:44 Glucose 112 mg/dL (70-105) H 12/13/18 02:44 POC Glucose 134 mg/dL (70-99) H 12/13/18 11:19 6.1 % (-5.6) H 12/12/18 01:54 311 (280-300) H 12/13/18 02:44 Lactic Acid 3.2 mmol/L (0.5-2.2) H 12/11/18 21:55 Calcium 7.8 mg/dL (8.6-10.3) L 12/13/18 02:44 Phosphorus 5.0 mg/dL (2.7-4.5) H 12/13/18 02:44 Magnesium 1.4 mg/dL (1.6-2.6) L 12/13/18 02:44 Iron 35 mcg/dL (65-175) L 12/12/18 01:54 % Saturation 14 % (20-55) L 12/12/18 01:54 173 mg/dL (203-362) L 12/12/18 01:54 27 mg/L (Less than 10) H 12/12/18 01:54 B-Natriuretic Peptide 260 pg/mL (Less than 100) H 12/11/18 12:07 >=300 mg/dL (Neg-Trace) H 12/11/18 18:28 100 mg/dL (Normal) H 12/11/18 18:28 5-15 per hpf (0-3) H 12/11/18 18:28 Ur Squamous Epith Cells Many per lpf (None-Few) H 12/11/18 18:28 Microalb/Creat Ratio 1612 mcg/mg (Less than 30) H 12/11/18 18:28 Protein/Creatinin Ratio 2.54 mg/mg (0.00-0.20) H 12/11/18 18:28 173 mg/dL (1-14) H 12/11/18 18:28 Diabetes panel 12/13/18 Range/Units 02:44 Sodium 138 (136-145) mEq/L Potassium 3.0 L (3.5-5.1) mEq/L Chloride 102 (98-107) mEq/L Carbon Dioxide 23 (23-29) mEq/L BUN 80 H (8-23) mg/dL Creatinine 4.46 H (0.70-1.30) mg/dL Glucose 112 H (70-105) mg/dL Calcium 7.8 L (8.6-10.3) mg/dL Calcium panel 12/13/18 Range/Units 02:44 Calcium 7.8 L (8.6-10.3) mg/dL Phosphorus 5.0 H (2.7-4.5) mg/dL Pituitary panel 12/13/18 Range/Units 02:44 Sodium 138 (136-145) mEq/L Potassium 3.0 L (3.5-5.1) mEq/L Chloride 102 (98-107) mEq/L Carbon Dioxide 23 (23-29) mEq/L BUN 80 H (8-23) mg/dL Creatinine 4.46 H (0.70-1.30) mg/dL Glucose 112 H (70-105) mg/dL Calcium 7.8 L (8.6-10.3) mg/dL Adrenal panel 12/13/18 Range/Units 02:44 Sodium 138 (136-145) mEq/L Potassium 3.0 L (3.5-5.1) mEq/L Chloride 102 (98-107) mEq/L Carbon Dioxide 23 (23-29) mEq/L BUN 80 H (8-23) mg/dL Creatinine 4.46 H (0.70-1.30) mg/dL Glucose 112 H (70-105) mg/dL Calcium 7.8 L (8.6-10.3) mg/dL All other labs normal.
[2018-12-14 16:35] LABS: Alpha 2 Globulin (PEP) 0.88 g/dL (0.48-1.05); Beta Globulin (PEP) 0.69 g/dL (0.48-1.10)
[2018-12-15 10:05] LABS: Myeloperoxidase Ab 0 AU/mL (0-19); Serine Protease-3 Antibody 5 AU/mL (0-19)
[2018-12-15 10:26] LABS: IFE Reflexed NOT DONE
[2018-12-15 10:32] LABS: ANA IgG by ELISA NONE DETECTED (None Detected)
== END 2018-12-13 12:49 | disposition home or self-care (01) | DRG 682 ==
LOC: 2ANU 11:28 → EMEROOARM 11:28 → 2ANU 17:05
PROVIDERS: ADMIT Internal Medicine Nephrology; ATTEND Internal Medicine Nephrology